=== PATIENT | female | born 1965 | race Two or more races ===

== ENCOUNTER 2023-09-09 15:37 | Emergency (ER) | payer MEDICAID, OTHER ==
[~2023-09-09] VITALS: Ht 162.6 cm; Wt 80.8 kg
[2023-09-09 16:49] LABS: Urine Bacteria None Seen /hpf (None Seen)
[2023-09-09 17:19] LABS: Basophils # (auto) 0 10 ^3/uL (0-0.2); Basophils % (auto) 0.2 % (0.0-2.0); Eosinophils # (auto) 0.1 10 ^3/uL (0-0.8); Hematocrit 40.3 % (36.0-46.0); Hemoglobin 13.3 g/dL (12.2-16.2); Lymphocytes # (auto) 1.6 10 ^3/uL (0.4-5.4); Lymphocytes % (auto) 18.4 % (10.0-50.0); Mean Corpuscular Hemoglobin 27.9 pg (28.0-32.0); Mean Corpuscular Hgb Conc. 32.9 g/dL (32.0-36.0); Mean Corpuscular Volume 84.9 fL (80.0-100.0); Monocytes # (auto) 0.7 10 ^3/uL (0-1.3); Monocytes % (auto) 7.7 % (0.0-12.0); Neutrophils # (auto) 6.2 10 ^3/uL (1.6-8.6); Neutrophils % (auto) 72.7 % (37.0-80.0); Nucleated Red Blood Cells % 0.1 %; Red Blood Cells 4.75 10^6/uL (4.0-5.20); Red Cell Distribution Width 14.3 % (11.8-14.3); White Blood Cell 8.6 10^3/uL (4.4-10.8)
[2023-09-09 17:25] LABS: Urine Blood 2+ /uL (Negative); Urine Clarity Clear (Clear); Urine Color Yellow (Yellow); Urine Mucus FEW (None Seen); Urine Protein, UAD TRACE (Negative); Urine Specific Gravity 1.022 (1.001-1.035); Urine Urobilinogen Normal (Negative); Urine WBC 3 /hpf (0 - 5); Urine pH 5.5 (5.0-9.0)
[2023-09-09 17:41] LABS: Alanine Aminotransferase 39 U/L (7-40); Albumin 3.9 g/dL (3.2-4.8); Alkaline Phosphatase 110 U/L (46-116); Anion Gap 7 (5-15); Aspartate Aminotransferase 27 U/L (13-40); BUN/Creatinine Ratio 15.3 (10.0-20.0); Bilirubin, Total < 0.2 mg/dL (0.2-1.0); Blood Urea Nitrogen 11 mg/dL (9-23); Calcium 8.6 mg/dL (8.7-10.4); Carbon Dioxide 27 mmol/L (20-30); Chloride 108 mmol/L (98-107); Glucose 90 mg/dL (74-106); Lipase 38 U/L (12-53); Potassium 4.2 mmol/L (3.5-5.1); Sodium 142 mmol/L (136-145); Total Protein 6.4 g/dL (5.7-8.2)
[2023-09-09] MEDS ORDERED: CIPR-173 PO (21:05)
[2023-09-09] MEDS: HYDROcodone-ACET 5/325MG TAB PO ONE (22:35)
[2023-09-09] MEDS: CIPROFLOXACIN HCL 500 MG TAB PO ONE (22:36)
[2023-09-09] MEDS: SODIUM CHLORIDE 0.9% 1,000 ML IV ONE (22:44)
[2023-09-09] MEDS: ONDANSETRON HCL 4 MG/2 ML VIAL IV ONE (22:46)
[2023-09-09 22:47] VITALS: BP 127/62; PULSE 82; RESP 18; TEMP 98; O2SAT 98
== END 2023-09-09 23:26 | disposition home or self-care (01) ==
LOC: ER 15:37
DX: K52.9 Noninfective gastroenteritis and colitis, unspecified (principal); K50.00 Crohn's disease of small intestine without complications; Z90.49 Acquired absence of other specified parts of digestive tract; Z88.0 Allergy status to penicillin
CPT/HCPCS: 36415; 74176; 80053; 81001; 83605; 83690; 84484; 85025; 85048; 87045; 87077; 87177; 87427; 87493; 96361; 96374; 99285; J2405; J7030